=== PATIENT | male | born 2000 | race Caucasian/White ===

== ENCOUNTER 2021-02-24 16:00 | Emergency (ER) | payer BC, SELFPAY ==
[2021-02-24 16:08] VITALS: BP 159/101; PULSE 93; RESP 18; TEMP 36.5; O2SAT 99
--- NOTE | 2021-02-24 16:15 | DI.RAD_ITS ---
EXAM: 2D digital imaging was performed. CLINICAL HISTORY: constipation and nausea. COMPARISON: No exams were available for comparison TECHNIQUE: Supine and uprightSupine and Lateral views of the abdomen was performed. FINDINGS: LUNG BASES: Clear. BOWEL GAS PATTERN: Nondistended. There is a moderate amount of stool in the colon. FREE AIR: None. CALCIFICATIONS: No radiopaque calcifications. OSSEOUS STRUCTURES: Normal for age. Mild right convex scoliosis of the lumbar spine. OTHER FINDINGS: None. IMPRESSION: Moderate amount of stool in the colon. No evidence of bowel obstruction. DATA REPOSITORY: RADIATION DOSE DELIVERED:
--- NOTE | 2021-02-24 16:21 | ED.GENADUL_ITS ---
Discharge Plan Disposition Patient Disposition: HOME Condition: Stable Discharge Details Clinical Impression: Nausea, Constipation Primary Care Provider: Radha Otero ED Provider: Dinh Marshall Home Meds and New Rx's Prescriptions: New ondansetron 4 mg tablet,disintegrating 4 mg PO Q8H PRN (Reason: nausea and vomiting) Qty: 30 RF: 0 Discharge Instructions Instructions: Constipation (ED) Additional Instructions: try taking docusate daily and as needed try using either miralax or milk of magnesia follow up with your primary care provider within 1-2 weeks if you feel more ill, have worsening abdominal pain or persistent vomit return to the emergency department Medical Decision Making 20 yo male who denies chronic illness comes in with chief complaint of intermittent nausea he thinks may be worse with eating for a month along with intermittent chills when he does have nauea. He also notes decrease in appetite and decreased bowel movements. He denies chest pain, dyspnea, abdomen pain, fevers. He has tried cutting down on dairy without significant relief. HE arrives speaking in full sentences and appears well in no distress. HE has clear lungs, no murmurs, soft nontender abdomen without guarding or rebound. Normal urination per the patient. He does use marijuana no other drug use. Given his benign abdomen exam with no tenderness doubt surgical pathology such as cholecystitis, appendicitis, small bowel obstruction and do not feel ct or labs indicated. Suspect possible food related illness vs irritable bowel, possible gastritis. Will obtain xray to evaluate for significant constipation and also treat nausea with zofran. He was treated for dental infection a month ago and no pain in the mouth and normal oropharynx exam, no findings to suggest continued dental infection, ludwigs, epiglotitis or retropharyngeal abscess and midline uvula so doubt peritonsilar abscess. xray shows no acute findings other than constipation. He remains stable and still has no abdominal tenderness on exam. Suspect constipation is the cause of his symptoms and could have developing food intolerance he needs to see his pcp for. Will d/c and usual and customary return precautions given Differential Diagnosis Differential Diagnosis: food allergy, functional constipation, ibs Imaging Data Radiologic Study: Attestation: I personally reviewed and interpreted this imaging study as follows: Imaging: X-Ray Radiologist's impression: IMPRESSION: Moderate to significant fecal loading. No evidence obstruction. HPI General Mode of arrival: ambulatory . Date/Time Provider Initiated Documentation: 02/24/21 16:06 . Limitations to Documentation: no limitations . Information obtained by: patient . History of Present Illness 20 year old M presents to the emergency department with the chief complaint of nausea, described as moderate, Patient started experiencing this month(s) (1) and it has been intermittent. No relieving factors improve symptom(s), No exacerbating factors reported . Patient notes other (constipation). Patient did receive the following treatments prior to arrival, none Related Data Home Medications Medication Instructions Recorded Confirmed ondansetron 4 mg PO Q8H PRN #30 tab 02/24/21 Previous Rx's Medication Instructions Recorded ondansetron 4 mg PO Q8H PRN #30 tab 02/24/21 Allergies Allergy/AdvReac Type Severity Reaction Status Date / Time No Known Allergies Allergy Unverified 02/24/21 16:10 General Stated Complaint: Dizzy/Sync TIM: 4 Review of Systems All systems reviewed & are unremarkable except as noted in HPI and below Constitutional Constitutional: Denies fever(s) and Denies weakness Cardiovascular Cardiovascular: Denies chest pain and Denies dyspnea Respiratory Respiratory: Denies cough and Denies dyspnea Gastrointestinal Gastrointestinal: Denies abdominal pain and Denies vomiting Neurologic Neurologic: Denies weakness FOR[facility], [facility] Medical History (Updated 02/24/21 @ 17:05 by Dinh Marshall MD) No active medical problems Surgical History (Updated 02/24/21 @ 16:11 by Inge Ibarra) No history of previous surgery Social History Smoking/Tobacco Use Status: Current every day Tobacco Type: e-cigarettes Smoking risk assessment performed?: Yes Alcohol Intake: current Alcohol Intake frequency: a few times a week Drug use: Daily Substance use type: marijuana Do you feel safe at home: Yes Do you feel safe in your relationship?: Yes Exam Const General: no acute distress Orientation: alert HENMT Head: normal to inspection Ears: external ears normal General nose exam: external nose normal Mouth: moist mucous membranes Eyes General: appearance normal, both eyes and all related structures Neck Neck: normal visual inspection Resp Effort & Inspection: normal respiratory effort and able to speak in complete sentences Cardio Rate: regular rate GI Palpation: soft, not rigid and nontender Skin General skin exam: no rashes or lesions noted Neuro General: patient alert and patient oriented x3 Extrem General: normal to inspection Psych Mental Status: mental status grossly normal Course Vital Signs Vital signs: Vital Signs Temperature 36.5 C 02/24/21 16:08 Pulse 93 H 02/24/21 16:08 Respiratory Rate 18 02/24/21 16:08 Blood Pressure 159/101 H 02/24/21 16:08 Pulse Oximetry 99 02/24/21 16:08 Temperature 36.5 C 02/24/21 16:08 Temperature Source Skin 02/24/21 16:08 Pulse 93 H 02/24/21 16:08 Respiratory Rate 18 02/24/21 16:08 Respiratory Effort Non-Labored 02/24/21 16:11 Blood Pressure 159/101 H 02/24/21 16:08 Blood Pressure Position Sitting 02/24/21 16:08 Pulse Oximetry 99 02/24/21 16:08 Oxygen Delivery Method Room Air 02/24/21 16:08 Oxygen Flow Rate 0 02/24/21 16:08 Pain Level 0 02/24/21 16:08
[2021-02-24] MEDS: Ondansetron O.D.T. 4 MG TABEF PO (16:28)
--- NOTE | 2021-02-24 17:01 | DI.VRAD_ITS ---
PROCEDURE INFORMATION: Exam: XR Abdomen Exam date and time: 02/24/2021 4:44 PM Age: 20 years old Clinical indication: Constipation and nausea TECHNIQUE: Imaging protocol: XR of the abdomen. Views: 2 Views. Upright and supine views. Total images: 3 COMPARISON: No relevant prior studies available. FINDINGS: Gastrointestinal tract: There is a moderate to significant amount of solid stool within the large bowel. There is no small or large bowel dilatation. Intraperitoneal space: Normal. No free air. Bones/joints: There is a mild lumbar dextroscoliosis. Soft tissues: There is no intra-abdominal mass effect. There are no opaque calculi. IMPRESSION: Moderate to significant fecal loading. No evidence obstruction. Dictated and Authenticated by: Severo Magaña MD. Ordering:ARCELIA Tao MD
== END 2021-02-24 17:35 | disposition home or self-care (01) ==
PROVIDERS: Emergency Provider Emergency Medicine; PCP Nurse Practitioner Family
DX: R11.0 Nausea (principal); K59.00 Constipation, unspecified
CPT/HCPCS: 99283; 74019